=== PATIENT | female | born 1955 | race Caucasian/White ===

== ENCOUNTER → 2021-10-20 10:48 | Outpatient (BNVA) | payer MEDICARE, BC, SELFPAY | PROVIDERS: PCP Family Medicine; Visit Provider Nurse Practitioner Family | DX: G62.9 Polyneuropathy, unspecified (principal); M54.50 Low back pain, unspecified; Z93.2 Ileostomy status | CPT/HCPCS: 99212 ==

== ENCOUNTER → 2022-04-25 13:29 | Outpatient (BNVA) | payer MEDICARE, BC, SELFPAY | PROVIDERS: PCP Family Medicine; Visit Provider Nurse Practitioner Family | DX: G62.9 Polyneuropathy, unspecified (principal); Z79.899 Other long term (current) drug therapy | CPT/HCPCS: 99212 ==

== ENCOUNTER → 2022-08-03 10:55 | Outpatient (BNVA) | payer MEDICARE, BC, SELFPAY | PROVIDERS: PCP Family Medicine; Visit Provider Nurse Practitioner Family | DX: G62.9 Polyneuropathy, unspecified (principal); Z79.899 Other long term (current) drug therapy | CPT/HCPCS: 99212 ==

== ENCOUNTER → 2022-11-03 11:12 | Outpatient (BNVA) | payer MEDICARE, BC, SELFPAY | PROVIDERS: PCP Family Medicine; Visit Provider Nurse Practitioner Family | DX: G62.9 Polyneuropathy, unspecified (principal) | CPT/HCPCS: 99212 ==

== ENCOUNTER 2023-06-26 09:48 | Outpatient (AMB) | payer MEDICARE, BC, SELFPAY ==
--- NOTE | 2023-06-26 09:52 | A.OFFVIS_ITS ---
Intake Vital Signs 06/26/23 10:00 Height 5 ft 7 in Weight 172 lb BMI 26.9 BP 102/62 Blood Pressure Location Lt brachial Position Sitting Pulse 89 Pulse Source Pulse Oximeter Pulse Oximetry (%) 96 Oxygen Delivery Method Room Air Intake Visit Reasons: 6m f/u - conf through CW Intake Note: F/U Polyneuropathy Director Of Patient Safety Required: No Allergies aspirin Allergy (Mild, Verified 06/26/23 09:54) unknown red dye Allergy (Mild, Verified 06/26/23 09:54) unknown morphine [MORPHINE] Allergy (Unknown, Verified 06/26/23 09:54) RASH penicillin G [PENICILLIN G] Allergy (Unknown, Verified 06/26/23 09:54) UNKNOWN HPI HPI Comments History of Present Illness Details 68-yr-old female presents for f/u visit of BLE neuropathy and sleep related legs cramping. Pt reports her BLE neuropathy controls well with pregabalin 50 mg, 1 cap q AM, afternoon and 2 capsules q HS. Pt states that she can't walk without pregabalin. She sleeps well from 9:30 pm to 6:30 am, with 1 ropinirle. She uses ropinirole as needed. It makes her groggy in the morning. Pt startee magnesium 400 mg and it helps to prevent night time legs cramping. Pt does daily exercise, treadmill, and riding bike. Lifting legs up, ice and heating pad also help to reduce the legs nerve pain. She does not eat meat or dairy, sees director of assessing every month. [facility] Medical History Sarcoidosis Surgical History History of back surgery History of creation of ostomy History of surgery Hx of endoscopy Hx of sigmoidoscopy Family History Father HTN (hypertension) Cancer Diabetes Mother Cancer Diabetes Social History (Updated 06/26/23 @ 10:00 by Berta Ashley CMA) Alcohol intake: never Patient Tobacco Use Status: Never used Tobacco Review of Systems Const All systems reviewed & are unremarkable except as noted in HPI and below Physical Exam Vital Signs: Last Vital Signs Pulse 89 06/26/23 10:00 BP 102/62 06/26/23 10:00 Pulse Ox 96 10/30/23 10:00 Oxygen Delivery Method Room Air 06/26/23 10:00 BMI result Body Mass Index 26.9 Const General: cooperative and no acute distress Orientation/consciousness: patient oriented x3 HEENT Head: Yes normocephalic Resp Effort & Inspection: normal respiratory effort and able to speak in complete sentences Neuro General: patient oriented x3, gait normal and CN's II-XI intact bilaterally Cognition (Neuro): normal cognition Motor exam (neuro): 5/5 motor strength present throughout Psych Appearance: grossly normal Mental Status: mental status grossly normal Speech and movement: Normal speech and movement present Affect: normal affect Attitude: cooperative Thought process: Normal thought process present Thought content: Normal thought content present Insight: Good insight present (Psych) Judgement: Good judgement present (Psych) Assessment & Plan Assessment & Plan (1) Polyneuropathy: Code(s): G62.9 - Polyneuropathy, unspecified Plan Advised patient to continue to ropinirole 0.25 mg tab, 1-4 tabs qHS. Continue to take lyrica 50 mg capsule, 1 cap q AM and afternoon, 2 caps q HS as patient experiences good clinical effects. Continue magnesium 400 mg qHS for legs cramping. Continue to do daily exercise. Coding Level of Care Code Est Pt Level 3 (30101) Diagnoses Polyneuropathy G62.9
[2023-06-26 10:00] VITALS: BP 102/62; PULSE 89; O2SAT 96; BMI 26.9
== END 2023-06-26 10:15 | disposition home or self-care (01) ==
LOC: HO.HSMS 09:49
PROVIDERS: PCP Family Medicine; Visit Provider Nurse Practitioner Family
DX: G62.9 Polyneuropathy, unspecified (principal)
CPT/HCPCS: 99213

== ENCOUNTER → 2023-06-26 09:48 | Outpatient (BNVA) | payer MEDICARE, BC, SELFPAY | PROVIDERS: PCP Family Medicine; Visit Provider Nurse Practitioner Family | DX: G62.9 Polyneuropathy, unspecified (principal) | CPT/HCPCS: 99212 ==

== ENCOUNTER 2024-06-24 11:07 | Outpatient (AMB) | payer MEDICARE, BC, SELFPAY ==
--- NOTE | 2024-06-24 11:42 | A.OFFVIS_ITS ---
Vital Signs 06/24/24 13:40 Height 5 ft 7 in Intake Visit Reasons: 1 yr f/u appt Intake Note: Patient following up. no issues or concerns today Allergies aspirin Allergy (Mild, Verified 06/24/24 13:41) unknown red dye Allergy (Mild, Verified 06/24/24 13:41) unknown morphine [MORPHINE] Allergy (Unknown, Verified 06/24/24 13:41) RASH penicillin G [PENICILLIN G] Allergy (Unknown, Verified 06/24/24 13:41) UNKNOWN HPI Comments Details: 68-yr-old female presents for f/u visit of BLE neuropathy and sleep related legs cramping. Pt reports 5 days ago, she accidnetly kicked her left foot into the corner of a large cardboard box, which caused pain and swelling. Saw urgent care on Sat, x- ray showed left 5th toe frcaure. She was given a soft shoe to wear. Since, the foot is still sore, swelling persists. She feels a tingling across all the toes. The foot is more botehrosme ta night. Has not been wearing the soft splint at night. Using her diclofenac gel in the am. The toes themselves are not splinted. Pt reports her BLE neuropathy were well-controlled prior to this accident. Compliant with pregabalin 50 mg, 1 cap q AM, afternoon and 2 capsules q HS. Pt states that she can't walk without pregabalin. She sleeps well from 9:30 pm to 6:30 am. She uses ropinirole as needed if she has had repeated restless nights, but it makes her groggy in the morning if not taken early enough. Has been using an OTC leg cramp supplement and magnesium 400 mg for bothersome legs cramping. Pt usually does daily exercise, treadmill, and riding bike. Lifting legs up, ice and heating pad also help to reduce the BLE pain/cramps.. [facility] Medical History (Updated 06/24/24 @ 11:54 by MARNIE Patiño) Anemia Vitamin B 12 deficiency Sarcoidosis Surgical History Hx of endoscopy Hx of sigmoidoscopy History of creation of ostomy History of surgery History of back surgery Family History Father HTN (hypertension) Cancer Diabetes Mother Cancer Diabetes Social History Alcohol intake: never Patient Tobacco Use Status: Never used Tobacco Physical Exam Const General: cooperative and no acute distress Orientation/consciousness: patient oriented x3 HEENT Head: Yes normocephalic Resp Effort & Inspection: normal respiratory effort and able to speak in complete sentences Neuro Other: Left foot swelling and mild ecchymosis. General: patient oriented x3, gait normal and CN's II-XI intact bilaterally Cognition (Neuro): normal cognition Motor exam (neuro): 5/5 motor strength present throughout Psych Appearance: grossly normal Mental Status: mental status grossly normal Speech and movement: Normal speech and movement present Affect: normal affect Attitude: cooperative Thought process: Normal thought process present Assessment & Plan Assessment & Plan (1) Polyneuropathy: Code(s): G62.9 - Polyneuropathy, unspecified Category: Medical (2) Muscle cramps: Code(s): R25.2 - Cramp and spasm Category: Medical Plan Recheck labs for neuropathy and cramping s/s. Continue ropinirole 0.25 mg tab, 1-4 tabs qHS prn. Continue Pregabalin 50 mg capsule, 1 cap q AM and afternoon, 2 caps q HS.. Continue magnesium 400 mg qHS for legs cramping. Advised to try a toe splint while sleeping. Discussed that although daily exercise and physical activity is important, advised to rest and elevate left leg as tolerated as left 5th toe fx heals. Will follow-up upon review of above and patient to follow-up in clinic in 6 months or sooner prn. Orders: Orders Complete Blood Count Auto Diff 06/25/24 G62.9 - Polyneuropathy, unspecified, E53.8 - Deficiency of other specified B group vitamins, D64.9 - Anemia, unspecified, R25.2 - Cramp and spasm Comprehensive Met. Panel 06/25/24 G62.9 - Polyneuropathy, unspecified, E53.8 - Deficiency of other specified B group vitamins, D64.9 - Anemia, unspecified, R25.2 - Cramp and spasm Ferritin 06/25/24 G62.9 - Polyneuropathy, unspecified, E53.8 - Deficiency of other specified B group vitamins, D64.9 - Anemia, unspecified, R25.2 - Cramp and spasm Magnesium 06/25/24 G62.9 - Polyneuropathy, unspecified, E53.8 - Deficiency of other specified B group vitamins, D64.9 - Anemia, unspecified, R25.2 - Cramp and spasm TSH reflex Free T4 06/25/24 G62.9 - Polyneuropathy, unspecified, E53.8 - Deficiency of other specified B group vitamins, D64.9 - Anemia, unspecified, R25.2 - Cramp and spasm Vitamin B6 06/25/24 G62.9 - Polyneuropathy, unspecified, E53.8 - Deficiency of other specified B group vitamins, D64.9 - Anemia, unspecified, R25.2 - Cramp and spasm IRON PROFILE 06/25/24 G62.9 - Polyneuropathy, unspecified, E53.8 - Deficiency of other specified B group vitamins, D64.9 - Anemia, unspecified, R25.2 - Cramp and spasm Creatine Kinase Total 06/25/24 G62.9 - Polyneuropathy, unspecified, E53.8 - Deficiency of other specified B group vitamins, D64.9 - Anemia, unspecified, R25.2 - Cramp and spasm Vitamin B12 and Folate 06/25/24 G62.9 - Polyneuropathy, unspecified, E53.8 - Deficiency of other specified B group vitamins, D64.9 - Anemia, unspecified, R25.2 - Cramp and spasm Homocysteine 06/25/24 G62.9 - Polyneuropathy, unspecified, E53.8 - Deficiency of other specified B group vitamins, D64.9 - Anemia, unspecified, R25.2 - Cramp and spasm Methylmalonic Acid 06/25/24 G62.9 - Polyneuropathy, unspecified, E53.8 - Deficiency of other specified B group vitamins, D64.9 - Anemia, unspecified, R25.2 - Cramp and spasm Coding Level of Care Code Est Pt Level 4 (87004) Diagnoses Polyneuropathy G62.9 Muscle cramps R25.2
== END 2024-06-24 12:02 | disposition home or self-care (01) ==
LOC: HO.HSMS 11:07
PROVIDERS: PCP Family Medicine; Visit Provider Nurse Practitioner Family
DX: G62.9 Polyneuropathy, unspecified (principal); R25.2 Cramp and spasm
CPT/HCPCS: 99214

== ENCOUNTER → 2024-06-24 11:07 | Outpatient (BNVA) | payer MEDICARE, BC, SELFPAY | PROVIDERS: PCP Family Medicine; Visit Provider Nurse Practitioner Family | DX: G62.9 Polyneuropathy, unspecified (principal); R25.2 Cramp and spasm | CPT/HCPCS: 99212 ==

== ENCOUNTER 2024-06-25 10:25 | Outpatient (REF) | payer MEDICARE, BC, SELFPAY ==
[2024-06-25 11:30] LABS: MANUAL DIFF FLAG NO
[2024-06-25 11:55] LABS: Basophils Absolute Auto 0.1 X10*3/uL (0.0-0.2); Eosinophils Absolute Auto 0.9 X10*3/uL (0.0-0.4); Hematocrit 41.7 % (37.0-47.0); Hemoglobin 13.3 g/dl (12.0-16.0); Imm Gran Abs Auto 0.01 X10*3/uL (0.00-0.03); Imm Gran Pct Auto 0.2 % (0.0-0.4); Lymphocytes Absolute Auto 1.4 X10*3/uL (1.2-4.9); Lymphocytes Percent Auto 23.2 % (20-40); Mean Corpuscular HGB Conc 31.9 g/dl (31.0-35.0); Mean Corpuscular Hemoglobin 28.4 pg (27.0-33.0); Mean Corpuscular Volume 88.9 fL (80.0-98.0); Mean Platelet Volume 10.6 fL (9.4-12.3); Monocytes Absolute Auto 0.4 X10*3/uL (0.1-1.2); Neutrophils Absolute Auto 3.3 x10*3/uL (2.0-8.3); Neutrophils Percent Auto 53.6 % (45-73); Platelet Count 391 X10*3/uL (160-400); Red Blood Count 4.69 X10*6/uL (4.20-5.50); Red Cell Distribution Width 13.7 % (11.0-16.0); White Blood Count 6.1 X10*3/uL (4.8-10.8)
[2024-06-25 12:52] LABS: Alanine Aminotransferase 24 U/L (0-31); Albumin Level 3.9 g/dL (3.5-5.0); Alkaline Phosphatase 116 U/L (39-117); Anion Gap 11 (12-20); Aspartate Amino Transferase 27 U/L (5-31); Bilirubin Total 0.7 mg/dL (0.0-1.0); Blood Urea Nitrogen 18 mg/dL (9-16); Carbon Dioxide 30 mmol/L (22-29); Chloride 108 mmol/L (96-108); Estimated Glomerular Filt Rate > 60; Glucose Random 84 mg/dL (60-115); Iron 79 mcg/dL (30-160); Magnesium 2.1 mg/dL (1.6-2.6); Percent Iron Saturation 30 % (15-50); Potassium 3.9 mmol/L (3.3-5.1); Sodium 145 mmol/L (135-145); Total Iron Binding Capacity 262 mcg/dL (228-428); Total Protein 6.5 g/dL (6.5-8.0); Unsaturated Iron Binding 183 ug/dL
[2024-06-25 13:09] LABS: Ferritin 115 ng/mL (10-250); TSH reflex Free T4 2.75 uIU/mL (0.32-4.0)
[2024-06-25 13:21] LABS: Folate 9.4 ng/mL (> or = 4.0); Vitamin B12 712 pg/mL (200-900)
[2024-07-01 08:59] LABS: Methylmalonic Acid 192 nmol/L (69-390)
== END 2024-06-25 10:26 | disposition home or self-care (01) ==
LOC: HO.WFDLDS 10:25
PROVIDERS: Visit Provider Nurse Practitioner Family
DX: G62.9 Polyneuropathy, unspecified (principal); E53.8 Deficiency of other specified B group vitamins; D64.9 Anemia, unspecified; R25.2 Cramp and spasm
CPT/HCPCS: 36415; 80053; 82550; 82607; 82728; 82746; 83540; 83735; 83921; 84207; 84443; 85025

== ENCOUNTER 2025-01-13 10:09 | Outpatient (AMB) | payer MEDICARE, BC, SELFPAY ==
--- NOTE | 2025-01-13 10:37 | A.OFFVIS_ITS ---
Vital Signs 01/13/25 10:38 Height 5 ft 7 in Weight 180 lb BMI 28.2 BP 124/70 Blood Pressure Location Rt brachial Position Sitting Pulse 111 H Pulse Source Pulse Oximeter Pulse Oximetry (%) 99 Oxygen Delivery Method Room Air Intake Visit Reasons: Follow Up 6mo Intake Note: Patient presents 6 month follow up for neuropathy and sleep related leg cramping. Secondary Teacher Required: No Accompanied by: Self / Same As Patient Allergies aspirin Allergy (Mild, Verified 01/13/25 10:38) unknown red dye Allergy (Mild, Verified 01/13/25 10:38) unknown morphine [MORPHINE] Allergy (Unknown, Verified 01/13/25 10:38) RASH penicillin G [PENICILLIN G] Allergy (Unknown, Verified 01/13/25 10:38) UNKNOWN cephalexine Allergy (Mild, Uncoded 01/13/25 10:42) mouth swelling Medication List - Last Reconciled 01/13/25 by MARNIE Patiño albuterol sulfate 2.5 mg inhalation Q6H albuterol sulfate 90 mcg/actuation (ProAir RespiClick) 2 inhalations inhalation Q6H PRN celecoxib 200 mg PO DAILY cetirizine (Zyrtec) 10 mg PO DAILY PRN cholecalciferol (vitamin D3) 50 mcg PO DAILY epinephrine 0.3 mL IM ONCE PRN levothyroxine (Levoxyl) 50 mcg PO DAILY magnesium oxide 400 mg PO DAILY 30 days mometasone-formoterol 200-5 mcg/actuation (Dulera) 2 puffs inhalation BID pregabalin 1 cap qam & q afternoon, 2 caps qhs PO 3 times a day; 90 days ropinirole 1-4 tabs orally bedtime; administer 1-3 hours before bedtime 30 days rosuvastatin 5 mg PO DAILY tiotropium bromide 2.5 mcg/actuation (Spiriva Respimat) 2 puffs inhalation DAILY zafirlukast 20 mg PO BID HPI Comments Details: 68-yr-old female presents for f/u visit of BLE neuropathy and sleep related legs cramping. Pt reports she is undergoing PT to tx left sided sciatica type pain radiating from left buttock down through the left leg , which she feels is secondary to the left 5th toe fracture which caused altered gait pattern. She did see Dr. Barksdale, rheumatology in October, underwent left 2/3 tarsal metatarsal joint xylocaine/Kenalog injection. Interval May lab workup, was unremarkable with ferritin 115, normal B12, folate. She continues to have BLE neuropathic pain. Her foot pain at least starts to increase after 13:00. The pregabalin helps her be able to be able to walk through the day. Compliant with pregabalin 50 mg, 1 cap q AM, 1 cap q afternoon and 2 capsules q HS. She notes when she was having increased left 5th toe fracture pain, her PCP had suggested taking an extra pregabalin cap per day, which was overall helpful. She sleeps well from 9-10 pm to 6:6:30 am. She is using background noise to help optimize her sleep. She can not sleep with was anything touching her feet, except for maybe the lightest of sheets. She does sleep with a fan directed at her feet, which is helpful. Has intermittent BLE leg cramps which can move up into her groin. This may not occur for a few days, and then occur back to back every 3 nights. Planning to start OTC Mag Glycinate for leg cramps. Has been using an OTC Laura's leg cramp supplement for bothersome legs cramp ing. Lifting legs up, ice and heating pad also help to reduce the BLE pain/cramps.. She uses ropinirole 0.25mg at 8pm as needed if she has had repeated restless nights, but it makes her groggy in the morning if not taken early enough. Pt is usually active, but less walking/treadmill use. Is looking into buying a stationary spin style l bike [facility] Medical History (Updated 01/13/25 @ 12:02 by MARNIE Patiño) Carcinoid tumor Collapsed lung Anemia Vitamin B 12 deficiency Sarcoidosis Surgical History (Updated 01/13/25 @ 12:05 by MARNIE Patiño) Hx of endoscopy Hx of sigmoidoscopy History of creation of ostomy History of surgery History of back surgery Family History Father HTN (hypertension) Cancer Diabetes Mother Cancer Diabetes Social History Alcohol intake: never Patient Tobacco Use Status: Never used Tobacco Physical Exam Vital Signs: Last Vital Signs Pulse 111 H 01/13/25 10:38 BP 124/70 01/13/25 10:38 Pulse Ox 99 01/13/25 10:38 Oxygen Delivery Method Room Air 01/13/25 10:38 BMI result Body Mass Index 28.2 Const General: cooperative and no acute distress Orientation/consciousness: patient oriented x3 HEENT Head: Yes normocephalic Resp Effort & Inspection: normal respiratory effort and able to speak in complete sentences Neuro General: patient oriented x3, gait normal and CN's II-XI intact bilaterally Cognition (Neuro): normal cognition Motor exam (neuro): 5/5 motor strength present throughout Psych Appearance: grossly normal Mental Status: mental status grossly normal Speech and movement: Normal speech and movement present Affect: normal affect Attitude: cooperative Thought process: Normal thought process present Assessment & Plan Assessment & Plan (1) Polyneuropathy: Code(s): G62.9 - Polyneuropathy, unspecified Category: Medical (2) Muscle cramps: Code(s): R25.2 - Cramp and spasm Category: Medical (3) History of back surgery: Comment: Lumbar diskectomy in October 2012 Code(s): Z98.890 - Other specified postprocedural states Category: Surgical (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 Continue ropinirole 0.25 mg tab, 1-4 tabs Q evening (6pm) as needed. Increase Pregabalin 50 mg capsule from, 1 cap q AM and afternoon, 2 caps q HS. to 1 cap 3 times a day (8am, 12pm, 4pm), and 2 caps daily at bedtime- in hopes this helps restless leg symptoms, as well as left-sided sciatica symptoms likely secondary to exacerbation of lumbar disc disease. Concur with trying magnesium glistening 400-500 mg qHS daily at bedtime. Continue to engage in paced, regular daily exercise and physical activity. Future considerations: L-spine MRI, EMG/NCS. Pt to follow-up in 6 months or sooner prn. Medications: Changed From pregabalin 1 cap qam & q afternoon, 2 caps qhs PO 3 times a day; 90 days 360 caps 1RF To pregabalin 1 cap TID (8am, 12pm, 4pm), and 2 caps qhs orally .; 90 days 450 caps 1RF Coding Level of Care Code Est Pt Level 4 (14617) Diagnoses Polyneuropathy G62.9 Muscle cramps R25.2 History of back surgery Z98.890 Polyarticular arthritis M13.0 Sarcoidosis D86.9
[2025-01-13 10:38] VITALS: BP 124/70; PULSE 111; O2SAT 99; BMI 28.2
--- OUTSIDE RECORDS SUMMARY | 2025-01-13 10:43 | XMS_ITS | Clinical Summary ---
Author Organization [address] [facility] Address [address] [place] [address] Phone Care Team Providers Care Skip Loader Name Role Phone Tyree Guadarrama Primary Care Provider [phone] Allergies Active Allergy Reactions Criticality Noted Date Comments Aspirin Anaphylaxis,GI intolerance,Nausea And Vomiting High 05/30/2017 Anaphylaxis per [facility] Ba d/c summary 02/2016 Cat Dander Anaphylaxis High 02/08/2018 Cephalexin Swelling High 12/30/2024 Morphine Other 05/30/2017 Cant recalls what happens Penicillins 05/30/2017 Other Reaction(s): Hives/Urticaria Pollen Extracts 02/08/2018 Red Dye 11/08/2013 Medications albuterol 2.5 mg /3 mL (0.083 %) nebulizer solution Take 1 Vial by nebulization every 4 hours as needed for Wheezing, Shortness of Breath or Cough for up to 30 days. 09/14/19 18 Active calcipotriene (DOVONOX) 0.005 % ointment Apply to affected are BID 02/28/20 18 Active celecoxib (CeleBREX) 200 mg capsule Take 200 mg by mouth daily. Active cetirizine (ZyrTEC) 10 mg tablet Take 10 mg by mouth daily. Active cholecalcifero l (VITAMIN D-3) 50 mcg (2,000 unit) tablet Take by mouth. Activ e clobetasoL (TEMOVATE) 0.05 % cream Apply BID x 2 weeks 05/30/20 17 Active dicyclomine (BENTYL) 10 mg capsule Take 1 Capsule by mouth 3 times daily as needed. Active levothyroxine (SYNTHROID, LEVOTHROID) 50 mcg tablet Take 50 mcg by mouth daily. Active mometasone-for moterol (DULERA 200) 200-5 mcg/actuation inhaler Inhale into the lungs. Active pregabalin (LYRICA) 75 mg capsule Take 75 mg by mouth daily. Active tiotropium (Spiriva Respimat) 2.5 mcg/actuation inhalation spray Inhale into the lungs. Active zafirlukast (ACCOLATE) 20 mg tablet Take 20 mg by mouth 2 times daily. Active hydrocortisone (ANUSOL-HC) 2.5 % rectal creamIndicatio ns:Hemorrhoids , unspecified hemorrhoid type Insert into the rectum 2 (two) times a day for 14 days. 30 g 1 10/15/19 25 Active rosuvastatin (CRESTOR) 5 mg tablet Take 1 tablet (5 mg total) by mouth 1 (one) time each day. 12/11/19 25 Active omalizumab (XOLAIR) 150 mg injection Inject into the skin every 28 days. 025 Discontinued Active Problems Problem Noted Date Diagnosed Date Spontaneous pneumothorax 08/10/2024 Asthma 12/22/2017 GERD (gastroesophageal reflux disease) 8 Interstitial cystitis 12/22/2017 Migraine 12/22/2017 Hypothyroidism 08/25/2017 Peripheral neuropathy 08/25/2017 Psoriasis 08/25/2017 Carcinoid tumor ([facility]/HCC V28) 05/30/2017 Overview (08/10/2024): Pulmonary nodule Left lung Sarcoidosis 05/30/2017 Low back pain 07/29/2014 Overview (08/10/2024): Comments: PSIS dysfunction: relieved with prn valium, refer to dinkey mechanic-pt ed Paresthesia of foot 07/29/2014 Paroxysmal supraventricular tachycardia ([facility]/HCC V24) 03/20/2013 Adenomatous polyp of colon 11/09/2012 Spinal stenosis 10/09/2012 Encounters Date Type Department Care Team Description 12/30/2024 9:45 AM EDT Office Visit Pulmonolgy - [address] [place] [address] Vincent Mckinney MD Moderate persistent asthma, unspecified whether complicated (Primary Dx) from Last 3 Months Immunizations Name Administration Dates Next Due Influenza trivalent, 0.5mL, preservative free (Fluarix; FluLaval; Fluzone) ages 6mo and older (Afluria) 3 years and older 05/29/2014,05/24/2013,05/16/2011 Pneumococcal polysaccharide 23 valent (Pneumovax 23) 2yo and older 11/01/2011 Tdap Tetanus diptheria acell ular pertussis (Boostrix; Adacel) 7yo and older 10/11/2011 Surgical History Surgery Date Site/Laterality Comments TUBAL LIGATION PROCEDURE: HISTORICAL TUBAL LIGATION FLEXIBLE SIGMOIDOSCOPY PROCEDURE: HISTORICAL FLEXIBLE SIGMOIDOSCOPY COLONOSCOPY 02/2012 PROCEDURE: HISTORICAL COLONOSCOPY; COMMENT: polypectomy COLONOSCOPY 06/2006 PROCEDURE: HISTORICAL COLONOSCOPY ESOPHAGOGASTRODUODENOSCOPY 06/2006 PROCEDURE: TX ESOPHAGOGASTRODUODENOSCOPY TRANSORAL DIAGNOSTIC BACK SURGERY 11/2012 PROCEDURE: HISTORICAL BACK SURGERY; COMMENT: discectomy L4-L5 OTHER SURGICAL HISTORY 03/01/2016 PROCEDURE: LUNG BIOPSY THROUGH CHEST WALL OTHER SURGICAL HISTORY 03/01/2016 Left PROCEDURE: REMOVAL OF LUNG LOBE/LESI; COMMENT: L lower lung lobe wedge resection #1: parenchyma w/ sub-pleural and perivascular granulomas. L lower lobe resection #2: Carcinoid tumor Medical History Medical History Date Comments Carcinoid tumor (CMS/HCC V28) 05/30/2017 DX :Carcinoid tumor; COMMENT: Pulmonary nodule Left lung Spontaneous pneumothorax DX:Spon taneous pneumothorax History of Graves' disease 08/25/2017 DX:Hi story of Graves' disease Hypothyroidism 08/25/2017 DX:Hypothyroidis m Psoriasis 08/25/2017 DX:Psoriasis Peripheral neuropathy 08/25/2017 DX:Periphe ral neuropathy Asthma 12/22/2017 DX:Asthma Migraine 12/22/2017 DX:Migraine GERD (gastroesophageal reflux disease) 12/22/2017 DX:GERD (gastroesophageal reflux disease) Adenomatous polyp of colon 11/09/2012 DX:Ad enomatous polyp of colon Interstitial cystitis 12/22/2017 DX:Interst itial cystitis Low back pain 07/29/2014 DX:Low back pain ; COMMENT: Comments: PSIS dysfunction: relieved with prn valium, refer to dinkey mechanic-pt ed Paresthesia of foot 07/29/2014 DX:Paresthes ia of foot Spinal stenosis 10/09/2012 DX:Spinal stenos is Sarcoidosis 05/30/2017 DX:Sarcoidosis Family History Medical History Relation Name Comments Seizures Brother 52 Hypertension Father bone CA Diabetes Mother breast CA, colo n CA at 40, stroke, hypertension, Relation Name Status Comments Brother Father Mother Social History Tobacco Use Types Packs/Day Years Used Date Smoking Tobacco: Never Smokeless Tobacco: Never Alcohol Use Standard Drinks/Week Comments No 0 (1 standard drink = 0.6 oz pur e alcohol) Comments Unknown Sex and Gender Information Value Date Recorded Sex Assigned at Not on file Legal Sex Female 11:15 AM EST Gender Identity Not on file Sexual Orientation Not on file Obstetrics History Last Filed Vital Signs Vital Sign Reading Time Taken Comments Blood Pressure 112/70 12/30/2024 9:53 AM EDT Pulse 88 12/30/2024 9:53 AM EDT Temperature 36.2 ??C (97.2 ??F) 12/30/2024 9:53 AM ED T Respiratory Rate 14 12/30/2024 9:53 AM EDT Oxygen Saturation 99% 12/30/2024 9:53 AM EDT Inhaled Oxygen Concentration - - Weight 82.1 kg (181 lb) 12/30/2024 9:53 AM EDT Height 170.2 cm (5' 7 ) 12/30/2024 9:53 AM EDT Body Mass Index 28.35 12/30/2024 9:53 AM EDT Plan of Treatment Upcoming Encounters Date Type Department Care Team (Late st Contact Info) Description 07/03/2025 9:30 AM EST Office Visit Pulmonolgy - [place] [address] [facility] [address] [place] [phone] Vincent Mckinney MD [address] [facility] [address] [place] [address] Health Maintenance Due Date Last Done Comments Breast Cancer Screening 1955 RSV Immunization Adult Patients (1 - Risk 60-74 years 1-dose series) 2015 Pneumococcal Vaccine: 50+ Years (3 of 3 - PPSV23, PCV20 or PCV21) 06/04/2020 04/09/2020, 11/01/2011 DTaP,Tdap,and Td Vaccines (2 - Td or Tdap) 10/11/2021 10/11/2011 Colorectal Cancer Screening: Colonoscopy 08/06/2022 Depression Screening 08/06/2022 Falls Risk Assessment 08/06/2022 Hepatitis C Screening 08/06/2022 Medicare Annual Wellness Visit 08/06/2022 Osteoporosis Screening (Bone Density Screening) 08/06/2022 Social Influencers of Health Screening 08/06/2022 COVID-19 Vaccine ( season) 2024 07/24/2022, 01/12/2022, 07/06/2021, Additional history exists Zoster Vaccines Completed 08/10/2020, 05/28, 04/13/2020 Influenza Vaccine Completed 06/06/2024, , 06/06/2022, Additional history exists HIB Vaccines Aged Out No longer eligi ble based on patient's age to complete this topic HPV Vaccines Aged Out No longer eligi ble based on patient's age to complete this topic Hepatitis A Vaccines Aged Out No long er eligible based on patient's age to complete this topic Hepatitis B Vaccines Aged Out No long er eligible based on patient's age to complete this topic IPV Vaccines Aged Out No longer eligi ble based on patient's age to complete this topic MMR Vaccines Aged Out No longer eligi ble based on patient's age to complete this topic Meningococcal ACWY Vaccine Aged Out N o longer eligible based on patient's age to complete this topic Meningococcal B Vaccine Aged Out No l onger eligible based on patient's age to complete this topic RSV Immunization Patients Under 20 months Aged Out No longer eligible based on patient's age to complete this topic Varicella Vaccines Aged Out No longer eligible based on patient's age to complete [place] [id number] MEDICARE [facility] Advance Directives Documents on File Type Date Recorded Patient Music Leader Expl anation Health Care Decision (hx) 11/27/2012 AD PIZARRO DIRECTIVE Health Care Decision (hx) 11/27/2012 AD PIZARRO DIRECTIVE Health Care Decision (hx) 11/27/2012 AD PIZARRO DIRECTIVE Health Care Decision (hx) 11/27/2012 AD PIZARRO DIRECTIVE Health Care Decision (hx) 11/27/2012 AD PIZARRO DIRECTIVE Care Teams Skip Loader Relationship Specialty Start Date End Date Tyree Guadarrama DO [address] [place] [address] PCP - General Family Medicine 05/31/19
--- OUTSIDE RECORDS SUMMARY | 2025-01-13 10:43 | XMS_ITS | Clinical Summary ---
Author Organization [facility] Address [address] [place] [address] Care Team Providers Care Automatic Lehr Operator Name Role Phone Tyree Guadarrama MD Primary Care Provider [phone] Allergies Active Allergy Reactions Criticality Noted Date Comments Aspirin Anaphylaxis High 07/05/2019 Morphine And Codeine Hives 07/05/2019 Penicillins Nausea And Vomiting 07/05/2019 Medications Medication Sig Dispensed Refills Start Date End Date Status albuterol (PROVENTIL) (2.5 MG/3ML) 0.083% nebulizer solution Inhale 2.5 mg into the lungs. 0 09/14/2017 Active Social History Tobacco Use Types Packs/Day Years Used Date Smoking Tobacco: Never Smokeless Tobacco: Never Sex and Gender Information Value Date Recorded Sex Assigned at Not on file Gender Identity Not on file Sexual Orientation Not on file Job Start Date Occupation Industry Not on file Not on file Not on file Last Filed Vital Signs Vital Sign Reading Time Taken Comments Blood Pressure 126/76 07/05/2019 9:54 AM EST Pulse - - Temperature - - Respiratory Rate - - Oxygen Saturation - - Inhaled Oxygen Concentration - - Weight 84.8 kg (187 lb) 07/05/2019 9:54 AM EST Height - - Body Mass Index - - Plan of Treatment Health Maintenance Due Date Last Done Comments Hepatitis C Screening 1955 COVID-19 Vaccine (#1) 1955 Depression Screening 1967 Preventative Health Evaluation 1973 DTap / Tdap / Td (1 - Tdap) 1974 Colon Cancer Screening (Colonoscopy) 2000 Breast Cancer Screening (Mammogram) 2005 Shingrix-Zoster Vaccine (1 of 2) 2005 Fall Risk Assessment 2020 Osteoporosis Screening (DEXA Scan) 2020 Pneumococcal Vaccine (2 of 2 - PCV) 2020 11/01/2011 Influenza Vaccine (#1) 2024 RSV Adult > 60+ Yrs or Pregn ant (1 - 1-dose 75+ series) 2030 Hepatitis B Vaccines Aged Out No long er eligible based on patient's age to complete this topic RSV Ped < 20 months Aged Out No longe r eligible based on patient's age to complete this topic Care Teams Automatic Lehr Operator Relationship Specialty Start Date End Date Tyree Guadarrama MD [address] [place] [address] PCP - General Family Medicine 05/31/19
--- OUTSIDE RECORDS SUMMARY | 2025-01-13 10:44 | XMS_ITS | Data Portability ---
Author Organization [facility] [address] Address [address] [place] [address] Assessment Encounter Date Assessment Date Assessment LastModified by Organization Details LastModified Time 06/30/2024 06/30/2024 Based on your presentation and exam today, I am diagnosing you with cellulitis. I am going to prescribe you and antibiotic to cover this infection. Please be sure to complete the full course of this antibiotic to prevent antibiotic resistance. I suggest with any antibiotic that you take Florastor or another probiotic. This help re-colonize you body with the good bacteria. It might take 3-4 days for the antibiotic to start working - so don't panic if your infection gradually worsens over the next 48 hours before it gets better. We will send the culture to verify what bacteria could be causing your symptoms. If the antibiotic needs changed we will do that. The following are my recommendations to help you feel better and aid in resolving this infection: 1. No creams or lotions on the affected area - so no Antibiotic ointment. 2. Warm Epsen Salt Soaks - 2 or 3 x daily. This will help move the infection to the surface of the skin. 3. Take Ibuprofen or Tylenol if you do not have any allergies to these medications. If you take a blood thinner you should not take NSAIDS like Ibuprofen. 4. Do no squeeze or pick at the area. This can worsen the infection. 5. supplemental nurse Hibiclen at the pharmacy and wash your body with that. If continues, I would follow up with a bilingual loan processor. The following are warning signs to look out for that would suggest the infection is worsening. This would mean you should be seen again: 1. Fever > 100.5 2. Redness is spreading to double the size in 24 hours 3. Increased swelling and pain. 4. Inability to move a joint 5. Swollen lymph nodes that are tender Thank you for using [facility] today, please don't hesitate to call or reach out to us if you have any questions or concerns. devon Not available 06/30/2024 16:00:54 Plan of Treatment Reminders Order Date Submit Date Provider Last Modified By Organization Details Last Modified Time Details Appointments None recorded. Lab None recorded. Referral None recorded. Procedures None recorded. Surgeries None recorded. Imaging None recorded. Medication Orders doxycycline hyclate 100 mg capsule 2023 024 [facility][id number], [address] [place], [address], 16:00:49 Patient TargetsNo targets recorded. Patient Instructions Encounter Date Encounter Id Patient Instructions Last Modified By Organization Details Last Modified Time 06/30/2024 [id number] learning about rice (rest, ice, compression, and elevation) devon Not available 06/30/2024 16:00:43 Reason for Referral None Reported. Problems Name Problem SNOMED Code Status Onset Date Resolution Date Notes Provider Name and Address Organization Details Recorded Time Thyroiditis 85266563 Active Dhara O'Newton null, PA - [facility] 15:21:06 Asthma 083877502 Active Dhara O'Newton null, PA - [facility] 15:21:18 Neuropathy 989140753 Active Dhara O'Newton null, PA - [facility] 15:22:02 Cellulitis of finger of right hand 7297226156724 9109 Active 2023 DOMINIK DENIS NP [address] [place], [address] [place] - [facility] 4 15:59:46 Problem Notes None recorded. Medical Equipment None Reported. Allergies Allergen ID Allergen Name Allergen Category Reaction Reaction Severity Criticality Documentation Date Start Date Code Code System Note Provider Name and Address Organization Details Recorded Time 9113538 penicilli n V Not available other moderate Not available 06/30/2024 7984 RxNorm Dhara O'Newton null, PA - [facility] 4 15:16:43 9111276 aspirin medicatio n anaphylax is severe Not available 06/30/2024 1191 RxNorm Dhara O'Newton null, PA - [facility] 4 15:17:11 8141972 Toradol medicatio n hives severe Not available 06/30/2024 68618 RxNorm Dhara O'Newton null, PA - [facility] 4 15:17:46 6531237 morphine medicatio n other moderate Not available 06/30/2024 7052 RxNorm Dhara O'Newton null, PA - [facility] 4 15:18:21 Medications Name Sig Start Date Stop Date Status Note LastModified by Organization Details LastModified Time celecoxib 200 mg capsule active Not Available Not Available Not Available prednisone 10 mg tablet PLEASE SEE ATTACHED FOR DETAILED DIRECTION S active Not Available Not Available No t Available doxycycline hyclate 100 mg capsule Take 1 capsule twice a day by oral route for 7 days. 2023 active Not Available Not Available Not Avai lable albuterol sulfate 2.5 mg/3 mL (0.083 %) solution for nebulizatio n USE 1 AMPULE VIA NEBULIZER EVERY 4 HRS NEEDED FOR COUGH/WHE EZING/LEMUEL RTNESS OF BREATH/CH EST PAIN active Not Available Not Available No t Available benzonatate 200 mg capsule TAKE ONE CAPSULE BY MOUTH EVERY 8 HOURS NEEDED 06/30 completed Not Available Not Available Not Available prednisone 5 mg tablet PLEASE SEE ATTACHED FOR DETAILED DIRECTION S active Not Available Not Available No t Available zafirlukast 20 mg tablet TAKE 1 TABLET BY MOUTH TWICE A DAY active Not Available Not Available No t Available Levoxyl 50 mcg tablet active Not Available Not Available N ot Available epinephrine 0.3 mg/0.3 mL injection, auto-inject or USE DIRECTED FOR ANAPHYLAX IS THEN CALL 911 active Not Available Not Available No t Available albuterol sulfate HFA 90 mcg/actuati on aerosol inhaler INHALE 2 PUFFS BY MOUTH EVERY 4 HOURS NEEDED active Not Available Not Available No t Available doxycycline hyclate 100 mg tablet TAKE 1 TABLET BY MOUTH TWICE A DAY FOR 10 DAYS 06/30 completed Not Available Not Available Not Available dicyclomine 10 mg capsule TAKE 1 CAPSULE BY MOUTH THREE TIMES A DAY active Not Available Not Available No t Available ipratropium bromide 21 mcg (0.03 %) nasal spray USE 1-2 SPRAYS TO EACH NOSTRIL 3 TIMES DAILY NEEDED FOR RUNNY NOSE active Not Available Not Available No t Available Xolair 150 mg subcutaneou s solution active Not Available Not Available N ot Available pregabalin 50 mg capsule TAKE 1 CAPSULE EVERY MORNING AND 1 CAPSULE EVERYAFTE RNOON, AND 2 CAPSULES AT BEDTIME (3 TIMES DAILY) active Not Available Not Available No t Available Senexon-S 8.6 mg-50 mg tablet TAKE 2 TABLETS BY MOUTH DAILY IN THE EVENING 06/30 completed Not Available Not Available Not Available Dulera 200 mcg-5 mcg/actuati on HFA aerosol inhaler active Not Available Not Available Not Available Spiriva Respimat 2.5 mcg/actuati on solution for inhalation USE 2 INHALATIO NS ORALLY DAILY active Not Available Not Available No t Available Plenvu 140 gram-9 gram-5.2 gram powder packs TAKE 3 PACKET BY MOUTH DIRECTED FOLLOW INSTRUCTI ONS PROVIDED BY THE PHYSICIAN FOR COLONOSCO PY 06/30 completed Not Available Not Available Not Available Vitals Date Recorded Body height Body mass index (BMI) Body weight Oxygen saturation Oxygen saturation in Arterial blood by Pulse oximetry Heart rate Body temperature Systolic blood pressure Diastolic blood pressure Provider Name and Address Organization Details Last Updated DateTime 4 172.72 cm 25.8 kg/m2 72699.7 g 100 % 100 % 81 /min 98.7 [degF] 129 mm[Hg] 80 mm[Hg] Dhara Bolaños PA - [facility] 4 15:15:56 Social History Question Answer Notes LastModified by Organizat ion Details LastModified Time Tobacco Smoking Status Never Smoker Dhara ivy PA - [facility] 06/30/2024 15:23:09 Have You Had A Flu Shot This Season? Yes Information not available 06/30/2024 If No, Would You Like A Flu Shot Today? A/P Information not available 06/30/2024 What Is Your Relationship Status? Information not available 06/30/2024 Are You Passively Exposed To Smoke? No Information no t available 06/30/2024 Have You Recently Traveled Abroad? No Information not available 06/30/2024 Sex: Unknown Functional Status Question Answer Note LastModified by Organizat ion Details LastModified Time Do you use any illicit or recreational drugs? No Information not available 06/30/2024 Do you or have you ever used any other forms of tobacco or nicotine? No Information not available 06/30/2024 What is your level of alcohol consumption? None Information not available 06/30/2024 Are you currently employed? Yes Information not available 06/30/2024 Mental Status None recorded. Family History Nothing Reported. Medical History No medical history recorded. Gynecological History Statement/Question Response Is there any chance of ? No LMP N/A Obstetrics History GPAL:G 0 P 0 0 0 0 Past Encounters Encounter ID Performer Location Encounter Start Date Encounter Closed Date Diagnosis/Indication Diagnosis SNOMED-CT Code Diagnosis ICD10 Code Diagnosis Note [id number] [address] [address] [address] 09/08/2018 10:34:48 09/08/2018 12:10:56 [id number] [address] [address] [address] 05/14/2017 11:15:45 05/14/2017 11:53:48 [id number] [facility] MIGUEL [address] [address] 06/30/2024 13:55:02 06/30/2024 16:01:30 Cellulitis of finger of right hand [id number] 1989168 L03.011 Health Concerns Section Related Observation LastModified by Organization Detai ls LastModified Time None Recorded Concern Status LastModified by Organization Details LastModified Time None Recorded Advance Directives Directive None Recorded Payers Insurance Date Sequence Insurance Name Policy Number Policy Mckenzie Covered Member ID Mckenzie Member ID Guarantor Name 06/30/2024 1 [place]IC[place] [employer] Shilpa Nowak [id number] SoniaAlyson Nowak 07/01/2024 2 [place] [facility] Shilpa Camposshantelle [id number] Shilpa Shields Andresshantelle Notes Date Note Type Note Provider Name and Address Organization Details Recorded Time 06/30/2024 text/html Finger PainRepor krishna bypatient.Neurovasc ular Status:no numbness or tingling Symptoms:pain with ROM;swelling;bruisi ng pt reports redness, discoloration to right hand ring fingerreports having a small injury to finger while opening a bag of shrimpnoted redness , expanding proximally on the fingerno joint pain DOMINIK DENIS NP [address] [place], [address], [place] - [facility] 06/30/2024 16:01:11 OBGyn Episode No OBEpisode recorded.
== END 2025-01-13 11:36 | disposition home or self-care (01) ==
LOC: HO.HSMS 10:09
PROVIDERS: PCP Family Medicine; Visit Provider Nurse Practitioner Family
DX: G62.9 Polyneuropathy, unspecified (principal); R25.2 Cramp and spasm; Z98.890 Other specified postprocedural states; M13.0 Polyarthritis, unspecified; D86.9 Sarcoidosis, unspecified
CPT/HCPCS: 99214

== ENCOUNTER → 2025-01-13 10:09 | Outpatient (BNVA) | payer MEDICARE, BC, SELFPAY | PROVIDERS: PCP Family Medicine; Visit Provider Nurse Practitioner Family | DX: G62.9 Polyneuropathy, unspecified (principal); R25.2 Cramp and spasm; M13.0 Polyarthritis, unspecified; D86.9 Sarcoidosis, unspecified; Z98.890 Other specified postprocedural states | CPT/HCPCS: 99212 ==